=== PATIENT | male | born 1955 | race Caucasian/White ===

== ENCOUNTER 2020-01-26 15:17 | Inpatient (IN) | payer OTHER, SELFPAY ==
[~2020-01-26] VITALS: Ht 180.3 cm; Wt 95.7 kg
[2020-01-26] MEDS ORDERED: ALBUTEROL SULFATE 0.083% 2.5 MG/3 ML VIAL.NEB INH ONE (15:30)
[2020-01-26] MEDS ORDERED: methylPREDNISolone SOD SUCC/PF 62.5 MG/ML VIAL IVP ONE (15:30)
[2020-01-26] MEDS ORDERED: LEVOFLOXACIN 500 MG/D5W 100 ML IV ONE (15:30)
--- NOTE | 2020-01-26 15:30 | NUR ---
BIB HIS DAUGHTER FROM HOME FOR COVID -19 AND INCREASE WORK OF BREATHING. INTERMITTENT FEVERS. GENERAL WEAKNESS. RECENT EXPOSURE FROM [place]. CALM, ALERT, TACHYPNEIC, TACHYCARDIC, DIAPHORETIC. NO DISTRESS, TALKS IN FULL COMPLETE SENTENCES, DENIES CP/SOB
[2020-01-26 15:34] VITALS: BP_SYST 164
--- NOTE | 2020-01-26 15:50 | NUR ---
DR SANTIAGO IN TO ASSESS
--- NOTE | 2020-01-26 15:55 | NUR ---
IV HL 18 GUAGE LT AC, LABS SENT. RAPID COVID OBTAINED.
--- NOTE | 2020-01-26 16:08 | NUR ---
RT AT BEDSIDE TO ASSESS, CXR IN PROGRESS.
[2020-01-26] MEDS ORDERED: ALBUTEROL MDI INHALATION 8 GM INH INH ONE (16:15)
[2020-01-26 16:22] LABS: BASOPHILS % (AUTO) 0.3 % (0.0-2.0); HEMATOCRIT 41.8 % (36-54); LYMPHOCYTES # (AUTO) 1.1 K/uL (1.0-5.5); LYMPHOCYTES % (AUTO) 24.8 % (20.5-51.5); MEAN CORPUSCULAR HEMOGLOBIN 30 pg (27-31); MEAN CORPUSCULAR HGB CONC 33 % (32-36); MEAN CORPUSCULAR VOLUME 88 fL (79.0-98.0); MONOCYTES # (AUTO) 0.3 K/uL (0.0-1.0); MONOCYTES % (AUTO) 7.3 % (1.7-9.3); NEUTROPHILS # (AUTO) 2.9 K/uL (1.8-7.7); NEUTROPHILS % (AUTO) 67.6 % (40.0-70.0); PLATELET COUNT (AUTO) 185 K/uL (130-430); RED BLOOD CELL COUNT(AUTO) 4.74 MIL/uL (4.2-6.2); RED CELL DISTRIBUTION WIDTH 13.2 % (9.0-15.0); WHITE BLOOD COUNT (AUTO) 4.3 K/uL (4.8-10.8)
[2020-01-26 17:02] LABS: BILIRUBIN,URINE 1+ (NEGATIVE); BLOOD, URINE NEGATIVE (NEGATIVE); COLOR,URINE YELLOW (YELLOW); GLUCOSE,URINE NEGATIVE (NEGATIVE); KETONES,URINE 2+ (NEGATIVE); LEUKOCYTE ESTERASE ,URINE NEGATIVE (NEGATIVE); NITRITE, URINE NEGATIVE (NEGATIVE); PH,URINE 5.5 (5.0-8.0); PROTEIN URINE 2+ (NEGATIVE)
[2020-01-26 17:03] LABS: CALCIUM 8.6 mg/dL (8.4-11.0); CREATININE 1.01 mg/dL (0.55-1.30); POTASSIUM 3.3 mmol/L (3.5-5.1)
[2020-01-26 17:05] LABS: PROTHROMBIN TIME 10.4 SECS (9.5-12.5)
[2020-01-26 17:09] LABS: ALBUMIN 3.5 g/dL (3.4-4.8); TOTAL BILIRUBIN 0.9 mg/dL (0.0-1.0)
[2020-01-26 17:14] LABS: CLARITY/URINE HAZY (CLEAR)
[2020-01-26] MEDS ORDERED: ASPIRIN 81 MG TAB.CHEW PO ONE (17:30)
[2020-01-26] MEDS ORDERED: POTASSIUM CHLORIDE 20 MEQ/PKT PACKET PO ONE (17:30)
[2020-01-26 17:38] LABS: RBC,URINE NONE SEEN /HPF (0-3)
[2020-01-26 17:39] LABS: BACTERIA,URINE FEW /HPF (None Seen); WBC,URINE 0-3 /HPF (0-3)
[2020-01-26 17:40] LABS: COARSE GRANULAR CASTS,URINE 0-10 /LPF (None Seen); MUCUS,URINE 2+ /LPF (None Seen)
--- NOTE | 2020-01-26 17:45 | NUR ---
ADMIT ORDERS RECEIVED FOR PNA, RESP FAILURE UNDER USMAN
[2020-01-26] MEDS ORDERED: POTASSIUM CHLORIDE 20 MEQ/PKT PACKET ONE (17:46)
--- NOTE | 2020-01-26 18:10 | NUR ---
ALERT, CALM, RESP UNLABORED, SKIN WARM AND DRY. CLEAR MENTATION AND SPEECH, DENIES CP/SOB FULL COMPLETE SENTENCES
--- NOTE | 2020-01-26 18:37 | NUR ---
Medication reconciliation completed with information provided by MR. HERNÁNDEZ. Any prior medication reconciliation on file was reviewed and corrected.
--- NOTE | 2020-01-26 20:25 | NUR ---
Patient will be admitted to care of [facility]. Admitted to TELE unit. Will go to room 120. Belongings list completed. Complete and up to date summary report printed. SBAR report to be given at bedside with opportunity for questions.
--- NOTE | 2020-01-26 20:35 | NUR ---
ADMIT NOTE Received pt from ER to the floor with a diagnosis of Respiratory Failure and Covid 19 Pneumonia. Admission process initiated. patient oriented to pain management, safety and call light-teach back done.
--- NOTE | 2020-01-26 20:41 | NUR ---
ADMIT NOTE Received pt from ER to the floor with a diagnosis of RESP. FAILURE ,COVID-19,PNA. Admission process initiated. patient oriented to pain management, safety and call light-teach back done.
[2020-01-26 20:45] VITALS: BP_SYST 160; BP_SYST 165
--- NOTE | 2020-01-26 21:00 | NUR ---
RELATIONSHIP ASSOCIATE: Patient is alert and oriented x 4, ambulatory with steady gait. He states he contracted COVID19 while going to [place]. He c/o weakness and shortness of breath and declined any pain. Patient is on 2L O2 via NC with SPO2 of 96%. Patient states SOB gets worse with activity. I educated patient about the importance of lying in the prone position while in bed to help promote secretions and lung expansion, he verbalized understanding. Patient has IV on LAC 22 g patent and intact. Patient understands that he can use urinal at bedside throughout shift. I have provided patient with snacks, juice, and a sandwich. Patient's blood pressure is elevated and will contact Dr. Silveira to report. Patient states he does not take any medications at home and does not have any pre-existing medical conditions. I have ensured all safety precautions. Bed is in the lowest position, locked, and call light within reach.
--- NOTE | 2020-01-26 21:46 | NUR ---
Ottoniel Mcgowan Dr. s/w Kusum
--- NOTE | 2020-01-26 22:30 | NUR ---
DR. DUMONT WAS PAGED: Dr. Dumont returned call and I reported patient's blood pressure. He gave verbal orders for PRN Clonidine which were repeated. No further orders were given at this time.
[2020-01-27] VITALS (7 sets, daily range): BP systolic 151–177
--- NOTE | 2020-01-27 00:24 | NUR ---
Consultation Paged Reason for Consultation: Covid-19 Positive Was consult called: Y Person who was notified : Martina Consulting Physician: Dr. Mohan (Dr. Duron is spinal surgeon) Ordering Physician: Ottoniel Marin
--- NOTE | 2020-01-27 00:34 | NUR ---
Consultation Paged Reason for Consultation: Elevated Troponin, PNA, Covid-19 Was consult called: Y Person who was notified : Martina Consulting Physician: Dr. Tamayo (Dr. Garcia is police commissioner) Ordering Physician: Ottoniel Marin
[2020-01-27] MEDS: cloNIDine HCL 0.1 MG TABLET PO PRN ×3 (00:50→20:10)
--- NOTE | 2020-01-27 00:50 | NUR ---
RN ROUNDS / VITALS: Patient is laying in bed and is currently asleep. Vitals were taken and patient declined any pain. He is coughing upon waking. His blood pressure was elevated at 177/97. PRN Clonidine was given as ordered by MD. Patient educated about the the reason for administration and potential side effects. He verbalized understanding and does not have any questions or concerns at this time. Will continue to monitor patient.
--- NOTE | 2020-01-27 03:00 | NUR ---
RN ROUNDS: Patient is laying in bed and appears to be asleep. He is not exhibiting any s/s of distress or discomfort. Will continue to monitor patient.
--- NOTE | 2020-01-27 04:36 | NUR ---
RN ROUNDS / COVID PCR TEST: Patient is laying in bed and is asleep. I have performed vitals. BP is 154/98, pt is asymptomatic. Informed patient that I would be performing the COVID nasal test (PCR), he agreed to sample at this time. Pt tolerated well. Ensured all safety precautions. Bed is locked and in the lowest position, call light within reach.
--- NOTE | 2020-01-27 06:48 | NUR ---
CLOSING NOTE: Patient resting in the bed with no s/s of distress or discomfort. Patient has cough and is on 3 L O2 via NC with unlabored breathing. He has SL LAC 22g patent and intact. Ensured all safety precautions. Bed locked in low position, side rails up, call light within reach. All needs were met throughout shift. Isolation maintained. Will endorse to night nurse.
[2020-01-27] MEDS: ENOXAPARIN SODIUM 40 MG/0.4 ML SYRINGE SUBCUT SCH ×2 (07:15→09:00)
[2020-01-27] MEDS ORDERED: IPRATROPIUM BROM 0.5 MG/2.5 ML VIAL.NEB (ATROVENT) INH PRN (07:15)
[2020-01-27] MEDS: DEXAMETHASONE SOD PHOSPHATE 10 MG/ML VIAL IVP SCH (07:15)
[2020-01-27] MEDS ORDERED: ALBUTEROL SULFATE 0.083% 2.5 MG/3 ML VIAL.NEB INH PRN (07:15)
--- NOTE | 2020-01-27 07:25 | NUR ---
CONSULTATION PAGED/CALLED Reason for Consultation: covid positive Person Who was Notified: pager [phone] Consulting Physician: Dr. HARPER Product Technician Specialty: Booster Assembler Ordering Physician: Dr. Noriega
--- NOTE | 2020-01-27 08:00 | NUR ---
OPENING NOTES, RECEIVED PT IN BED, PT IS AAOX4, NO C/O OF PAIN, NO SOB, NO FEVER. NOTED THAT PT HAS COUGH, DENIES AND SPUTUMS OR PHLEGM, SAFETY PRECAUTION IN PLACE, CALL LIGHT IN REACH. BED IN LOW POSITION, EDUCATED PT ON THE USE OF CALL LIGHT , TV AND BED CONTROLS. ENCOURAGED PT TO CALL FOR ASSIST AND PAIN MEDS OR ANY CONCERNS. WILL CONT TO MONITOR.
[2020-01-27] MEDS: cefTRIAXone 1 GM in D5W 50 ML IV SCH (08:15)
[2020-01-27] MEDS: AZITHROMYCIN 500 MG in NS 250 ML IV SCH (09:00)
[2020-01-27 10:50] LABS: CALCIUM 9.3 mg/dL (8.4-11.0); CREATININE 0.96 mg/dL (0.55-1.30)
[2020-01-27] MEDS ORDERED: BENZONATATE 100 MG CAPSULE (TESSALON) PO ONE (11:00)
[2020-01-27] MEDS ORDERED: FAMOTIDINE 20 MG TABLET PO ONE (11:00)
[2020-01-27 11:03] LABS: ALBUMIN 3.4 g/dL (3.4-4.8); TOTAL BILIRUBIN 0.7 mg/dL (0.0-1.0)
[2020-01-27 11:11] LABS: C-REACTIVE PROTEIN QUANT 9.9 mg/dL (0-0.5)
[2020-01-27] MEDS ORDERED: ALBUTEROL MDI INHALATION 8 GM INH INH ONE (12:00)
[2020-01-27] MEDS ORDERED: ASPIRIN 81 MG TAB.CHEW PO ONE (12:00)
[2020-01-27] MEDS ORDERED: IPRATROPIUM BROM 0.5 MG/2.5 ML VIAL.NEB (ATROVENT) INH ONE (12:00)
[2020-01-27] MEDS ORDERED: IPRATROPIUM BROM 0.5 MG/2.5 ML VIAL.NEB (ATROVENT) INH SCH (13:00)
[2020-01-27] MEDS ORDERED: ALBUTEROL SULFATE 0.083% 2.5 MG/3 ML VIAL.NEB INH SCH (13:00)
--- NOTE | 2020-01-27 14:58 | NUR ---
ALL MEDICATIONS GIVEN TO PATIENT THIS SHIFT, TEACHING OF MEDICATIONS EFFECTS AND SIDE EFFECTS DONE. PT VERBALIZED UNDERSTANDING.
--- NOTE | 2020-01-27 14:59 | NUR ---
Dietitian Recommendations * Recommend regular diet w/ Ensure Enlive BID (ONS provides 700 kcal/day, 40 gm protein/day) KRISTIE, RD Please refer to Nutrition Assessment for details. Addendum: 01/27/20 at [address] Amended: Links added.
[2020-01-27] MEDS: BENZONATATE 100 MG CAPSULE (TESSALON) PO SCH ×2 (15:52→20:10)
--- NOTE | 2020-01-27 16:12 | NUR ---
SEEN PT DOING PRONING IN BED.
--- NOTE | 2020-01-27 18:19 | NUR ---
CLOSING NOTES, PT HAS BEEN STABLE THE WHOLE SHIFT, BP WAS A LITTLE ELEVATED THIS MORNING, PT WAS GIVEN CATAPRES, PT STARTED ON REMDESEVIR WITH NO ADVERSE RXN. PT CONTINUED TO BE ON O2 3L PER NC , O2 SAT STILL ON 93%.
[2020-01-27] MEDS: IPRATROPIUM BROM 0.5 MG/2.5 ML VIAL.NEB (ATROVENT) INH SCH (19:00)
--- NOTE | 2020-01-27 19:15 | NUR ---
OPENING NOTE REPORT RECEIVED FROM DAYSHIFT NURSE. PATIENT RECEIVED LYING IN BED, AWAKE, WATCHING TV, AOX4, NO S/S OF ACUTE DISTRESS NOTED. BREATHING EVEN AND UNLABORED. HOB RAISED, NASAL CANULA ATTACHED PROPERLY, ON 3L OF OXYGEN. PATIENT DENIES PAIN OR SOB. IV SITE IS PATENT, NO SIGNS OF INFILTRATION OR INFECTION NOTED. CALL LIGHT WITH PATIENT. PATIENT DEMONSTRATED BACK PROPER USE. BED IS LOCKED AND AT LOWEST POSITION. WILL CONTINUE TO MONITOR.
[2020-01-27] MEDS: ALBUTEROL MDI INHALATION 8 GM INH INH SCH (19:35)
[2020-01-27] MEDS: FAMOTIDINE 20 MG TABLET PO SCH (20:10)
--- NOTE | 2020-01-27 20:10 | NUR ---
VITALS/HIGH BP/MEDPASS VITALS TAKEN AT THIS TIME. BP ELEVATED, PRN MEDICATION ADMINISTERED. SCHEDULED MEDICATIONS ADMINISTERED AT THIS TIME. WILL CONTINUE TO MONITOR AND REASSESS. ALL NEEDS MET. CALL LIGHT WITH PATIENT.
--- NOTE | 2020-01-27 22:00 | NUR ---
ROUNDS PATIENT IN BED, WATCHING TV. NO SIGNS OF DISCOMFORT NOTED. CHEST RISE AND FALL EVEN BILATERALLY. CALL LIGHT WITH PATIENT. WILL CONTINUE TO MONITOR.
[2020-01-28] VITALS: BP_SYST 120
--- NOTE | 2020-01-28 | NUR ---
ROUNDS/VITALS PATIENT IN BED, RESTING, PRONE POSITION. VITALS TAKEN AT THIS TIME, WNL. ALL NEEDS MET. CALL LIGHT WITH PATIENT. WILL CONTINUE TO MONITOR.
--- NOTE | 2020-01-28 03:00 | NUR ---
ROUNDS PATIENT SITTING UP IN BED, DRINKING WATER. NO SIGNS OF DISCOMFORT. ALL NEEDS MET. CALL LIGHT WITH PATIENT. WILL CONTINUE TO MONITOR.
--- NOTE | 2020-01-28 05:00 | NUR ---
ROUNDS PATIENT IN BED, ASLEEP AT THIS TIME. NO SIGNS OF DISCOMFORT NOTED. CHEST RISE AND FALL EVEN BILATERALLY. HOB RAISED. CALL LIGHT WITH PATIENT. WILL CONTINUE TO MONITOR.
[2020-01-28] MEDS: cefTRIAXone 1 GM in D5W 50 ML IV SCH (06:15)
[2020-01-28] MEDS: DEXAMETHASONE SOD PHOSPHATE 10 MG/ML VIAL IVP SCH (06:19)
--- NOTE | 2020-01-28 06:19 | NUR ---
CLOSING NOTE PATIENT IN BED, AWAKE, AOX4, NO S/S OF ACUTE DISTRESS NOTED. BREATHING EVEN AND UNLABORED, HOB RAISED, NASAL CANULA ATTACHED PROPERLY, ON 3L OF OXYGEN. PATIENT DENIES PAIN OR SOB. IV ANTIBIOTIC INFUSING WELL, IV SITE IS PATENT, NO SIGNS OF INFILTRATION OR INFECTION NOTED. ALL NEEDS MET THROUGHOUT SHIFT. FALL AND SAFETY PRECAUTIONS MAINTAINED THROUGHOUT SHIFT. WILL CONTINUE TO MONITOR UNTIL PATIENT CARE IS ENDORSED TO ONCOMING DAYSHIFT NURSE.
[2020-01-28] MEDS: IPRATROPIUM BROM 0.5 MG/2.5 ML VIAL.NEB (ATROVENT) INH SCH (07:00)
[2020-01-28] MEDS: AZITHROMYCIN 500 MG in NS 250 ML IV SCH (07:15)
[2020-01-28] MEDS: ALBUTEROL MDI INHALATION 8 GM INH INH SCH ×3 (07:18→19:50)
--- NOTE | 2020-01-28 07:40 | NUR ---
OPENING NOTES PT RESTING IN BED, CHEST RISE AND FALL NOTED. NONLABORED BREATHING NOTED, RECEIVING O2 AT 3LPM VIA NASAL CANNULA, TOLERATING WELL. IV LINE INTACT AND PATENT, NO SIGNS OF INFILTRATION NOTED. NO ACUTE DISTRESS NOTED. ALL NEEDS MET. CALL LIGHT IN REACH. FALL AND ASPIRATION PRECAUTIONS IN PLACE. CONTINUE TO MONITOR.
--- NOTE | 2020-01-28 07:45 | NUR ---
SPOKE TO DR. BROWN, RECEIVED ORDERS FOR CONVALESCENT PLASMA, VERIFIED, AND CARRIED OUT.
[2020-01-28 09:00] VITALS: BP_SYST 138
[2020-01-28] MEDS: ASPIRIN 81 MG TAB.CHEW PO SCH (09:04)
[2020-01-28] MEDS: FAMOTIDINE 20 MG TABLET PO SCH ×2 (09:04→20:50)
[2020-01-28] MEDS: BENZONATATE 100 MG CAPSULE (TESSALON) PO SCH ×3 (09:04→20:50)
[2020-01-28] MEDS: ENOXAPARIN SODIUM 40 MG/0.4 ML SYRINGE SUBCUT SCH (09:04)
--- NOTE | 2020-01-28 09:04 | NUR ---
ROUTINE MEDS ADMINISTERED ORDERED PER MD, EDUCATION GIVEN, TOLERATED WELL. CONTINUE TO MONITOR. Addendum: 01/28/20 at 1131 by Jessica Stout RN EDUCATION GIVEN ON CONVALESCENT PLASMA, PT STATED WILL SIGN CONSENT AFTER READING PAPERS AND VERBALIZED UNDERSTANDING. AWAITING CONSENT.
[2020-01-28 09:56] LABS: CALCIUM 8.8 mg/dL (8.4-11.0); CREATININE 0.81 mg/dL (0.55-1.30); POTASSIUM 4.4 mmol/L (3.5-5.1); TOTAL BILIRUBIN 0.6 mg/dL (0.0-1.0)
[2020-01-28 09:57] LABS: C-REACTIVE PROTEIN QUANT 5.7 mg/dL (0-0.5)
[2020-01-28 12:00] VITALS: BP_SYST 137
[2020-01-28] MEDS: CHOLECALCIFEROL (VITAMIN D3) 2,000 UNIT TABLET PO SCH (12:24)
[2020-01-28] MEDS: ASCORBIC ACID 500 MG TABLET PO SCH (12:24)
--- NOTE | 2020-01-28 12:25 | NUR ---
ROUTINE MEDS ADMINISTERED ORDERED PER MD, EDUCATION GIVEN, TOLERATED WELL. PT STATES THINKING ABOUT CONVALESCENT PLASMA AT THIS TIME, HAS NOT SIGNED CONSENT FORM YET. AWAITING FOR CONSENT. CONTINUE TO MONITOR.
--- NOTE | 2020-01-28 15:50 | NUR ---
ROUTINE MEDS ADMINISTERED ORDERED PER MD, EDUCATION GIVEN, TOLERATED WELL. RECEIVED CONSENT FROM PT, WILL INFORM BLOOD BANK.
[2020-01-28 16:00] VITALS: BP_SYST 138
--- NOTE | 2020-01-28 18:16 | NUR ---
PLACED DINNER TRAY ON TABLE. PT SITTING UP IN CHAIR. CONTINUE TO MONITOR.
--- NOTE | 2020-01-28 19:00 | NUR ---
CLOSING NOTES PT AWAKE AND ALERT, SITTING UP IN BED, WATCHING TV. NONLABORED BREATHING NOTED, RECEIVING O2 AT 3LPM VIA NASAL CANNULA, TOLERATING WELL. IV LINE INTACT AND PATENT, NO SIGNS OF INFILTRATION NOTED. NO ACUTE DISTRESS NOTED. ALL NEEDS MET. CALL LIGHT IN REACH. FALL AND ASPIRATION AND ISOLATION PRECAUTIONS IN PLACE. ENDORSED CARE TO ALLAN NICHOLS INCLUDING ADMINISTERING CONVALESCENT PLASMA.
--- NOTE | 2020-01-28 19:30 | NUR ---
Initial Note: Received report from zaid LEMUS. Patient is in bed, watching tv. No acute distress. Even, nonlabored breathing on 3L nasal cannula. IV site is patent, intact, and saline locked. Bed is locked at lowest position. Side rails up x2. Call light is with patient. Safety and fall precautions in place. Will continue with plan of care. Addendum: 01/29/20 at 0143 by Shasha Tavarez RN Correction: Covid, safety, and fall precautions in place.
[2020-01-28 20:00] VITALS: BP_SYST 156
--- NOTE | 2020-01-28 22:20 | NUR ---
CONVALESCENT PLASMA INITIATION: Consent signed per patient agreeing to administration of blood. Blood has been type and crossmatched. PLASMA [id number] sent from blood bank. Information on unit of PLASMA checked against patient wristband at bedside by two nurses. All information matches. Patient or responsible alliance party informed of potential complications associated with blood transfusion. Informed of possible transfusion reaction symptoms. Aware of need to notify nurse at once of itching, shortness of breath, flushing, feeling of impending doom, or other symptoms not previously present. Vital signs taken within 5 minutes prior to initiation of transfusion. RN will remain with patient for first 15 minutes of transfusion at which time vital signs will be re-assessed.
--- NOTE | 2020-01-28 23:05 | NUR ---
Spoke to daughter: Spoke to daughter, Rizwana Meade [phone]. Updated her on patient status. Addendum: 01/28/20 at 8844 by Shasha Tavarez RN Correction: Phone # is [phone]
[2020-01-29] VITALS: BP_SYST 150
--- NOTE | 2020-01-29 00:30 | NUR ---
Rounds: Patient in bed, resting. Convalescent plasma completed at this time. No acute distress. Breathing is even, nonlabored on 3L nasal cannula. Call light is with patient. Covid, safety and fall precautions in place. Will continue to monitor.
--- NOTE | 2020-01-29 02:45 | NUR ---
Rounds: Patient is sleeping in bed. No signs of acute distress. Respirations are even, nonlabored on 3L nasal cannula. Call light is with patient. Covid, safety, and fall precautions in place. Will continue to monitor patient.
[2020-01-29] MEDS: guaiFENesin/DEXTROMETHORPHAN 10 ML UDC PO PRN ×4 (04:38→21:30)
--- NOTE | 2020-01-29 04:38 | NUR ---
Cough: Patient complained of cough. Robitussin 10ml PO indicated. Educated patient on indications and side effects of medications. Patient verbalized understanding. Medication administered per MD order. Patient tolerated well. Will continue to monitor patient.
[2020-01-29] MEDS: DEXAMETHASONE SOD PHOSPHATE 10 MG/ML VIAL IVP SCH (06:30)
[2020-01-29] MEDS: cefTRIAXone 1 GM in D5W 50 ML IV SCH (06:30)
--- NOTE | 2020-01-29 06:56 | NUR ---
Closing note: Patient is sitting on a chair by bedside, watching tv. No acute distress. Even, nonlabored breathing on 4L nasal cannula. IV site is patent and intact. All needs met. Bed is locked at lowest position. Side rails up x2. Call light is with patient. Safety and fall precautions in place. Will endorse to zaid RN. Addendum: 01/29/20 at 0658 by Shasha Tavarez RN Covid precautions in place.
[2020-01-29 07:22] LABS: BASOPHILS % (AUTO) 0.1 % (0.0-2.0); HEMATOCRIT 40.7 % (36-54); HEMOGLOBIN 13.8 g/dL (14.0-18.0); LYMPHOCYTES # (AUTO) 0.7 K/uL (1.0-5.5); LYMPHOCYTES % (AUTO) 9.5 % (20.5-51.5); MEAN CORPUSCULAR HEMOGLOBIN 30 pg (27-31); MEAN CORPUSCULAR HGB CONC 34 % (32-36); MEAN CORPUSCULAR VOLUME 87 fL (79.0-98.0); MONOCYTES # (AUTO) 0.6 K/uL (0.0-1.0); MONOCYTES % (AUTO) 7.8 % (1.7-9.3); NEUTROPHILS # (AUTO) 6.1 K/uL (1.8-7.7); NEUTROPHILS % (AUTO) 82.6 % (40.0-70.0); PLATELET COUNT (AUTO) 298 K/uL (130-430); RED BLOOD CELL COUNT(AUTO) 4.67 MIL/uL (4.2-6.2); RED CELL DISTRIBUTION WIDTH 13.2 % (9.0-15.0); WHITE BLOOD COUNT (AUTO) 7.4 K/uL (4.8-10.8)
[2020-01-29 07:32] LABS: ALBUMIN 3.2 g/dL (3.4-4.8); CALCIUM 8.8 mg/dL (8.4-11.0); CREATININE 0.78 mg/dL (0.55-1.30); POTASSIUM 4.2 mmol/L (3.5-5.1); TOTAL BILIRUBIN 0.7 mg/dL (0.0-1.0)
--- NOTE | 2020-01-29 07:40 | NUR ---
Initial note: Patient is awake, alert and oriented, sitting up in chair. Patient is not showing any signs of distress on 2L NC, denies pain at this time. Patient remains in isolation precautions due to positive covid test. IV line #22g LAC is intact and running TKO. On regular diet and eating most of his meals. Patient s skin is intact and due to get remdesevir at noon today. Will continue to monitor patients progress. I got a full report from the production supervisor off shift nurse. Bed is low, locked, 2 side rails are up and call light is within reach.
[2020-01-29 08:00] VITALS: BP_SYST 162
[2020-01-29] MEDS: ALBUTEROL MDI INHALATION 8 GM INH INH SCH ×6 (08:21→20:18)
[2020-01-29] MEDS: AZITHROMYCIN 500 MG in NS 250 ML IV SCH (08:26)
[2020-01-29] MEDS: ASPIRIN 81 MG TAB.CHEW PO SCH (08:30)
[2020-01-29] MEDS: CHOLECALCIFEROL (VITAMIN D3) 2,000 UNIT TABLET PO SCH (08:30)
[2020-01-29] MEDS: ASCORBIC ACID 500 MG TABLET PO SCH (08:30)
[2020-01-29] MEDS: FAMOTIDINE 20 MG TABLET PO SCH ×2 (08:30→21:30)
[2020-01-29] MEDS: BENZONATATE 100 MG CAPSULE (TESSALON) PO SCH ×3 (08:30→21:30)
[2020-01-29] MEDS: ENOXAPARIN SODIUM 40 MG/0.4 ML SYRINGE SUBCUT SCH (09:17)
--- NOTE | 2020-01-29 10:15 | NUR ---
Patient is watching tv, not showing any signs of distress. Cough medication was given per patients request. All needs were met. Bed is low, locked, 2 side rails are up and call light is within reach.
[2020-01-29 12:00] VITALS: BP_SYST 160
--- NOTE | 2020-01-29 12:12 | NUR ---
Patient is sitting up in chair, not showing any signs of distress. Denies pain at this time. Meal tray was taken in, remdesevir IV fluids were hung. Will continue to monitor patients status. Bed is low, locked, 2 side rails are up and call light is within reach.
[2020-01-29] MEDS: cloNIDine HCL 0.1 MG TABLET PO PRN (12:57)
--- NOTE | 2020-01-29 14:00 | NUR ---
Patient is sitting up in chair, watching TV, not showing any signs of distress. Bed is low, locked, 2 side rails are up and call light is within reach.
[2020-01-29 16:00] VITALS: BP_SYST 140
--- NOTE | 2020-01-29 16:08 | NUR ---
Patient in bed, not showing any signs of distress. RT is giving patient a breathing treatment and assessing his breathing effort on NC. Bed is low, locked, 2 side rails are up and call light is within reach.
--- NOTE | 2020-01-29 18:53 | NUR ---
Closing note: Patient is awake, alert and oriented, sitting up in chair. Patient is not showing any signs of distress on 2L NC, denies pain at this time. Patient remains in isolation precautions due to positive covid test. IV line #22g LAC is intact and running TKO. On regular diet and eating most of his meals. Patienthad 2nd dose of remdesevir at noon today. Will continue to monitor patients progress. All needs were met. I will give a full report to the assistant shift supervisor nurse. Bed is low, locked, 2 side rails are up and call light is within reach.
--- NOTE | 2020-01-29 19:30 | NUR ---
Opening notes Received report. Patient is resting in bed, no signs of distress noted. Breathing even and unlabored. RT increased O2 to 4 L NC. Patient O2 sat 93%-94%. IV patent and intact, no signs of infiltration noted. Patient ate about 50% of dinner. Provided patient with ice water. No other needs. Call light with the patient. Safety precautions in place.
[2020-01-29 20:30] VITALS: BP_SYST 156
--- NOTE | 2020-01-29 21:30 | NUR ---
Medications scheduled and prn cough medications given. Educated the action and side effects of Pepcid. patient verbalized understanding and tolerated well. No other needs at this time. Patient continues to watch TV. Call light with the patient. Safety precautions in place.
--- NOTE | 2020-01-29 23:22 | NUR ---
RN rounds Patient is resting in bed, watching TV. No signs of distress noted. Breathing even and unlabored on 4 L NC. No needs at this time. Call light with the patient. Safety precautions in place.
[2020-01-30] VITALS (7 sets, daily range): BP systolic 148–154
--- NOTE | 2020-01-30 01:30 | NUR ---
Increased oxygen Patient O2 sat on 6 L NC 88%. Patient has no shortness of breath, only coughing. RT came and put patient on Oximizer 6 L. O2 sat 94%. Patient tolerating well. Charge nurse aware. Addendum: 01/30/20 at 0311 by Cesilia Ortiz RN PRN cough medication given. Educated the action and side effects of medication. Patient verbalized understanding and tolerated well.
[2020-01-30] MEDS: guaiFENesin/DEXTROMETHORPHAN 10 ML UDC PO PRN (01:32)
--- NOTE | 2020-01-30 04:30 | NUR ---
RN rounds Patient is resting in bed, watching TV. No signs of distress noted. Breathing even and unlabored on 6 L oximizer. No needs at this time. Call light with the patient. Safety precautions in place.
--- NOTE | 2020-01-30 06:30 | NUR ---
5 L Oximizer Patient tolerating well. O2 sat 97%.
[2020-01-30] MEDS: DEXAMETHASONE SOD PHOSPHATE 10 MG/ML VIAL IVP SCH (06:54)
[2020-01-30] MEDS: AZITHROMYCIN 500 MG in NS 250 ML IV SCH (06:54)
[2020-01-30] MEDS: cefTRIAXone 1 GM in D5W 50 ML IV SCH (07:15)
[2020-01-30 07:20] LABS: CALCIUM 9.4 mg/dL (8.4-11.0); CREATININE 0.86 mg/dL (0.55-1.30); POTASSIUM 4.9 mmol/L (3.5-5.1)
[2020-01-30 07:21] LABS: ALBUMIN 3.1 g/dL (3.4-4.8); BILIRUBIN,DIRECT 0.2 mg/dL (0.0-0.3); TOTAL BILIRUBIN 0.7 mg/dL (0.0-1.0)
--- NOTE | 2020-01-30 07:33 | NUR ---
Closing notes Patient is resting in bed, no signs of distress noted. Breathing even and unlabored on 5 L oximizer. No shortness of breath noted. IV patent and intact, infusing ABX. Spoke to Dr. Miranda and informed MD that patient has been changed from 4 L NC to 6 L oximizer. MD stated "Okay." All needs met throughout the shift. Call light with the patient. Safety precautions in place. Endorsed care to day shift RN.
--- NOTE | 2020-01-30 07:45 | NUR ---
Opening Notes/Breathing Treatment Patient is awake, alert and oriented x4. Patient is noted with a cough, dry. No phelgm noted. RT was called for a breathing treatment, tolerated well. Patient remains on continuous oxygen @ 5 LPM via cool mist oximizer, tolerated well. IV site on left AC, 18 gauge intact at this time. IV ATB is still infusing at this time. Pt is ambulatory, steady gait. Pt denies any NVD or abnormal bleeding at this time. IC at bedside, pt encouraged to use it during shift, aware and agreed. All needs met. Safety and fall precautions in place. Bed in lowest position, locked. Will continue to monitor.
[2020-01-30] MEDS: ALBUTEROL MDI INHALATION 8 GM INH INH SCH ×4 (08:03→20:17)
[2020-01-30] MEDS: ASPIRIN 81 MG TAB.CHEW PO SCH (09:17)
[2020-01-30] MEDS: ASCORBIC ACID 500 MG TABLET PO SCH (09:17)
[2020-01-30] MEDS: FAMOTIDINE 20 MG TABLET PO SCH ×2 (09:17→20:07)
[2020-01-30] MEDS: CHOLECALCIFEROL (VITAMIN D3) 2,000 UNIT TABLET PO SCH (09:17)
[2020-01-30] MEDS: BENZONATATE 100 MG CAPSULE (TESSALON) PO SCH ×3 (09:17→20:07)
[2020-01-30] MEDS: ENOXAPARIN SODIUM 40 MG/0.4 ML SYRINGE SUBCUT SCH (10:16)
--- NOTE | 2020-01-30 10:45 | NUR ---
Notes Patient is awake, alert and oriented x4. No resp distress at this time. Pt remains on 5 L via oximizer. Pts family is at the window. IV ATB infusing at this time. Denies any pain at this time. Will continue to monitor.
--- NOTE | 2020-01-30 12:45 | NUR ---
Notes Patient is sitting up in his chair, alert and oriented x4. Pt is still noted with a cough. Encouraged to drink water, aware and agreed. Remains on oximizer @ 5 LPM, tolerated well. Pt denies any pain at this time. IV ATB infusing at this time. All needs met at this time. Will continue to monitor.
--- NOTE | 2020-01-30 13:35 | NUR ---
Ballot Given to daughter Per patient request, nurse gave pts mail in ballot to daughter, Hannah in the front lobby. Ballot was placed in a zip lock, wiped down with Sani-cloth, placed in a patients belonging bag and given to daughter.
--- NOTE | 2020-01-30 14:49 | NUR ---
Notes Patient is sitting up in his chair, watching TV at this time. No resp distress at this time. Pt remains on oximizer @ 5 LPM, tolerating well. IV ATB still infusing at this time. No needs at this time. Will continue to monitor.
[2020-01-30] MEDS: IPRATROPIUM BROM 0.5 MG/2.5 ML VIAL.NEB (ATROVENT) INH SCH (15:00)
--- NOTE | 2020-01-30 16:25 | NUR ---
Notes Patient is sitting in his chair at this time and watching TV. No resp distress noted. Breathing is even and unlabored. Denies any pain. Will continue to monitor.
--- NOTE | 2020-01-30 18:29 | NUR ---
Closing Notes Patient is awake, alert and oriented x4, sitting up in bed. No resp distress. Breathing is even and unlabored, no signs of dyspnea on excretion. Pt remains on cool mist oximizer @ 5 LPM, tolerated well. Pt is still noted with a cough. Pt denies any pain at this time. IV site on left AC, 22 gauge intact, saline lock. Pt denies any NVD or abnormal bleeding. IC at bedside. Patient is eating dinner at this time. All needs met. Call light within reach. Safety and fall precautions in place. Bed in lowest position, alarm on, locked. Will continue to monitor.
--- NOTE | 2020-01-30 19:35 | NUR ---
ROUNDS PATIENT SITTING UP IN THE CHAIR, WATCHING TV, NOT IN DISTRESS, VITALS STABLE. DENIES ANY PAIN AND DISCOMFORT AT THIS TIME. ASSESSMENT DONE AND DOCUMENTED. SEE FLOWSHEET. NEEDS ATTENDED TO. SAFETY MEASURES IN PLACED. BED IN LOW AND LOCKED POSITION. CALL LIGHT PLACED WITHIN REACH.
--- NOTE | 2020-01-30 21:15 | NUR ---
MEDICATION DUE MEDICATIONS GIVEN ORDERED, TOLERATED WELL. WILL CONTINUE TO MONITOR.
[2020-01-31] VITALS: BP_SYST 147
--- NOTE | 2020-01-31 00:10 | NUR ---
PATIENT RESTING: Patient resting quietly. No acute distress noted. Vital signs within normal range.
--- NOTE | 2020-01-31 02:14 | NUR ---
ROUNDS PATIENT ASLEEP, NO SOB NOTED, RESPIRATIONS EVEN AND UNLABORED. WILL CONTINUE TO MONITOR.
--- NOTE | 2020-01-31 04:17 | NUR ---
ROUNDS PATIENT SLEEPING, RESPIRATIONS EVEN AND UNLABORED, NO SIGNS OF ANY PAIN AND DISCOMFORT NOTED. WILL CONTINUE TO MONITOR.
--- NOTE | 2020-01-31 06:43 | NUR ---
CLOSING NOTES PATIENT AWAKE, NO COMPLAINTS AT THIS TIME, DENIES PAIN AND DISCOMFORT. ALL NEEDS ATTENDED TO. SAFETY MEASURES MAINTAINED. CALL LIGHT PLACED WITHIN REACH.
[2020-01-31 06:58] LABS: BASOPHILS % (AUTO) 0.1 % (0.0-2.0); HEMATOCRIT 41.1 % (36-54); HEMOGLOBIN 13.9 g/dL (14.0-18.0); LYMPHOCYTES # (AUTO) 1.6 K/uL (1.0-5.5); LYMPHOCYTES % (AUTO) 18.2 % (20.5-51.5); MEAN CORPUSCULAR HEMOGLOBIN 30 pg (27-31); MEAN CORPUSCULAR HGB CONC 34 % (32-36); MEAN CORPUSCULAR VOLUME 87 fL (79.0-98.0); MONOCYTES # (AUTO) 0.8 K/uL (0.0-1.0); MONOCYTES % (AUTO) 9.6 % (1.7-9.3); NEUTROPHILS # (AUTO) 6.2 K/uL (1.8-7.7); NEUTROPHILS % (AUTO) 72.1 % (40.0-70.0); PLATELET COUNT (AUTO) 350 K/uL (130-430); RED BLOOD CELL COUNT(AUTO) 4.71 MIL/uL (4.2-6.2); WHITE BLOOD COUNT (AUTO) 8.6 K/uL (4.8-10.8)
[2020-01-31 07:31] LABS: BILIRUBIN,DIRECT 0.2 mg/dL (0.0-0.3); CALCIUM 8.9 mg/dL (8.4-11.0); CREATININE 0.7 mg/dL (0.55-1.30); POTASSIUM 4.9 mmol/L (3.5-5.1); TOTAL BILIRUBIN 0.7 mg/dL (0.0-1.0)
[2020-01-31] MEDS: cefTRIAXone 1 GM in D5W 50 ML IV SCH (07:45)
[2020-01-31] MEDS: ALBUTEROL MDI INHALATION 8 GM INH INH SCH ×4 (07:58→20:02)
[2020-01-31 08:15] VITALS: BP_SYST 154
[2020-01-31] MEDS: DEXAMETHASONE SOD PHOSPHATE 10 MG/ML VIAL IVP SCH (08:15)
[2020-01-31] MEDS: AZITHROMYCIN 500 MG in NS 250 ML IV SCH (08:15)
--- NOTE | 2020-01-31 08:30 | NUR ---
OPENING NOTES, RECEIVED PT IN BED, PT IS AAOX4 , DENIES PAIN, NO SOB, NO RESP DISTRESS. NO FEVER. SAFETY PRECAUTION IN PLACE. CALL LIGHT IN REACH, BED IN LOW POSITION. WILL CONT TO MONITOR.
[2020-01-31] MEDS: FAMOTIDINE 20 MG TABLET PO SCH ×2 (09:50→20:17)
[2020-01-31] MEDS: BENZONATATE 100 MG CAPSULE (TESSALON) PO SCH ×3 (09:50→20:17)
[2020-01-31] MEDS: ASPIRIN 81 MG TAB.CHEW PO SCH (09:50)
[2020-01-31] MEDS: ASCORBIC ACID 500 MG TABLET PO SCH (09:51)
[2020-01-31] MEDS: ENOXAPARIN SODIUM 40 MG/0.4 ML SYRINGE SUBCUT SCH (09:51)
[2020-01-31] MEDS: CHOLECALCIFEROL (VITAMIN D3) 2,000 UNIT TABLET PO SCH (09:51)
[2020-01-31] MEDS: IPRATROPIUM BROM 0.5 MG/2.5 ML VIAL.NEB (ATROVENT) INH SCH ×3 (11:00→19:00)
--- NOTE | 2020-01-31 13:56 | NUR ---
o2 sat is 95% on 2.5li of oxygen via oxymizer, informed jackson andrade, she said she mehdi downgrade pt to nc.
[2020-01-31 16:14] VITALS: BP_SYST 140
--- NOTE | 2020-01-31 18:34 | NUR ---
CLOSING NOTES PT HAS BEEN STABLE THE WHOLE SHIFT, NO C/O PAIN, NO PT NOW ON O2 3L PER NC WITH RESTING SATURATION OF 96%. PT DESAT PER RESOURCE NURSE LIZETTE WHEN PT AMBULATED FROM CHAIR TO THE WINDOW. BUT PT ABLE TO RECOVER FAST AFTER RESTING. WILL ENDORSE TO NIGHT NURSE.
[2020-01-31 20:00] VITALS: BP_SYST 148
--- NOTE | 2020-01-31 20:00 | NUR ---
INITIAL NOTES PATIENT IS STABLE AND SITTING ON THE CHAIR WATCHING TV. NO S/S OF RESPIRATORY DISTRESS NOTED. CALL LIGHT IN REACH. PATIENT SUCCESSFULLY DEMONSTRATES USAGE OF CALL LIGHT IN REACH. BED IS LOCKED, AND AT THE LOWEST POSITION. FALL, SAFETY, ASPIRATION, RESPIRATORY, AND COVID PRECAUTIONS WILL BE IN PLACE THROUGHOUT THE SHIFT. PLAN OF CARE IS DISCUSSED WITH PATIENT.
--- NOTE | 2020-01-31 22:00 | NUR ---
PATIENT IS STABLE AND SLEEPING IN BED. NO S/S OF RESPIRATORY DISTRESS NOTED. CALL LIGHT IN REACH.
[2020-01-31 23:36] VITALS: BP_SYST 158
--- NOTE | 2020-02-01 | NUR ---
PATIENT IS SLEEPING IN BED AND STABLE. NO S/S OF RESPIRATORY DISTRESS NOTED. CALL LIGHT IN REACH.
--- NOTE | 2020-02-01 02:00 | NUR ---
PATIENT IS STABLE AND SLEEPING IN BED. NO S/S OF RESPIRATORY DISTRESS NOTED. CALL LIGHT IN REACH.
--- NOTE | 2020-02-01 03:00 | NUR ---
PATIENT WAS RESTING AT THIS TIME. PATIENT WAS STABLE AND SHOWED NO S/S OF RESPIRATORY DISTRESS NOTED. CALL LIGHT IN REACH.
--- NOTE | 2020-02-01 04:52 | NUR ---
PATIENT IS STABLE AND SLEEPING IN BED. NO S/S OF RESPIRATORY DISTRESS NOTED. CALL LIGHT IN REACH.
[2020-02-01] MEDS: DEXAMETHASONE SOD PHOSPHATE 10 MG/ML VIAL IVP SCH (06:42)
[2020-02-01] MEDS: cefTRIAXone 1 GM in D5W 50 ML IV SCH (06:42)
--- NOTE | 2020-02-01 06:50 | NUR ---
CLOSING NOTES PATIENT IS STABLE AND SITTING IN CHAIR. NO S/S OF RESPIRATORY DISTRESS NOTED. CALL LIGHT IN REACH. BED IS LOCKED AND AT THE LOWEST POSITION. FALL, SAFETY, ASPIRATION, COVID, AND RESPIRATORY PRECAUTIONS HAS BEEN IN PLACE THROUGHOUT THE SHIFT. WILL CONTINUE TO MONITOR UNTIL SBAR REPORT IS ENDORSE TO AM NURSE.
[2020-02-01] MEDS: ALBUTEROL MDI INHALATION 8 GM INH INH SCH ×3 (07:44→15:57)
[2020-02-01 08:00] VITALS: BP_SYST 153
[2020-02-01] MEDS: BENZONATATE 100 MG CAPSULE (TESSALON) PO SCH ×3 (08:33→22:27)
[2020-02-01] MEDS: ASCORBIC ACID 500 MG TABLET PO SCH (08:33)
[2020-02-01] MEDS: FAMOTIDINE 20 MG TABLET PO SCH ×2 (08:33→22:27)
[2020-02-01] MEDS: ASPIRIN 81 MG TAB.CHEW PO SCH (08:33)
[2020-02-01] MEDS: CHOLECALCIFEROL (VITAMIN D3) 2,000 UNIT TABLET PO SCH (08:33)
[2020-02-01] MEDS: ENOXAPARIN SODIUM 40 MG/0.4 ML SYRINGE SUBCUT SCH (09:00)
--- NOTE | 2020-02-01 10:20 | NUR ---
PT NOW ON ROOM AIR. OXYGEN DISCONTINUED( PT WAS SATURATING 96% ON 2.5 LITER PER NC). WILL CONT TO MONITOR PT.
--- NOTE | 2020-02-01 11:51 | NUR ---
pt o2 sat on room air is 91-92% while sitting. encouraged pt to do breathing exercise and proning.
[2020-02-01 12:00] VITALS: BP_SYST 135
--- NOTE | 2020-02-01 16:23 | NUR ---
Nutrition F/U RD reviewed pt's current EMR record including diet Hx, physician notes, nursing notes, pertinent labs/meds/procedures, care trends, and care activity. Admission Dx: Respiratory failure, COVID-19, pneumonia PMH: none SARS-CoV-2 Ag (Rapid) Positive 01/25 SARS-CoV-2 (PCR) Positive 01/26 Current Diet Order/Nutrition Support: Subjective Info: RD visit deferred d/t isolation precautions and PPE conservation efforts. Per EMR, pt seems to have a good appetite, tolerating diet well, no documentation of N/V/C/D. Last BM x2 01/29 noted. Wt has been stable at 211# since 01/26. Current diet remains adequate/appropriate. Pertinent Medications decadron, VIT C, VIT D3, zinc sulfate Pertinent Labs BG 102 H, Troponin 0.0.90 H, CRP 2 H, ALB 3 L Skin Integrity Comment: Monty scale: 19; skin intact per RN report Current % PO 80% average x13 meals Estimated Energy Expenditure (kcals/day) 6291-0533 kcal/day (MSJ x 1.2-1.5 CBW for acute state) Estimated Protein Required (g/day) 125-192 gm/day (1.3-2 gm/kg CBW for acute state) Estimated Fluid Required (l/day) 2.1-2.7 L/day (1 ml/kcal/day for maintenance) Problem/Etiology/Signs/Symptoms Unintentional wt loss related to pathophysiological causes as evidenced by reported 10# wt loss within the past 1 month. *ongoing Expected Outcomes/Goals - Monitor appetite and PO intakes w/ goal of pt meeting at least 80% of estimated nutritional needs, labs trending WNL, normal GI function, and skin integrity/wt maintenance Dietitian Recommendations * Recommend continuing regular diet w/ Ensure Enlive BID (ONS provides 700 kcal/day, 40 gm protein/day) Follow Up Mod Risk: F/U in 3-5 days Addendum: 02/01/20 at [address] CORRECTION: Current Diet Order/Nutrition Support: Regular w/ Ensure Enlive BID x5 days
--- NOTE | 2020-02-01 16:27 | NUR ---
Dietitian Recommendations * Recommend continuing regular diet w/ Ensure Enlive BID (ONS provides 700 kcal/day, 40 gm protein/day) LP, RD Please refer to Nutrition F/U for details.
[2020-02-01 17:00] VITALS: BP_SYST 137
--- NOTE | 2020-02-01 18:53 | NUR ---
closing notes, pt has been off oxygen from 1020 this am, pt is tolerating okay, saturation is around 92%-93%. with some episodes of desaturation to 89-90%. pt denies any feeling of sob during those time. pt encouraged to do breathing exercise and proning. all meds offered and taken. will endorse to night nurse.
[2020-02-01 19:50] VITALS: BP_SYST 158
--- NOTE | 2020-02-01 19:50 | NUR ---
INITIAL NOTE AT INITIAL ASSESSMENT, PATIENT IS RESTING IN BED, STABLE, NO SIGNS OF RESPIRATORY DISTRESS. PATIENT VERBALIZES NO PAIN. PLAN OF CARE FOR THE EVENING IS COMMUNICATED WITH THE PATIENT. PATIENT DEMONSTRATES CORRECT USAGE OF CALL LIGHT AT THIS TIME. BED IS LOCKED, ALARMED, AND AT THE LOWEST LEVEL. FALL SAFETY EDUCATION PROVIDED. FALL, SAFETY, ASPIRATION, ISOLATION, AND RESPIRATORY PRECAUTIONS WILL BE TAKEN THROUGHOUT THE SHIFT.
--- NOTE | 2020-02-01 21:50 | NUR ---
MED PASS NOTE SCHEDULED MEDICATIONS GIVEN AT THIS TIME, PATIENT TOLERATED WELL. PRN MEDICATION FOR SBP>160 IS ALSO GIVEN AT THIS TIME FOR ELEVATED BLOOD PRESSURE. WILL REASSESS FOR EFFECTIVENESS. PATIENT IS NOT SHOWING ANY S/S OF HYPERTENSION. CALL LIGHT IS PLACED WITHIN REACH. BED IS LOCKED, ALARMED, AND AT THE LOWEST LEVEL.
--- NOTE | 2020-02-01 21:55 | NUR ---
BREATHING EXERCISE TEACHING PATIENT EDUCATED ON BREATHING TECHNIQUE, HE DEMONSTRATED BACK TEACHING SUCCESSFULLY. HE IS CURRENTLY ON ROOM AIR WITH OXYGEN SATURATION ABOUT 93%.
[2020-02-01] MEDS: cloNIDine HCL 0.1 MG TABLET PO PRN (22:05)
--- NOTE | 2020-02-01 23:40 | NUR ---
NOTE PATIENT IS RESTING IN BED, STABLE, NO SIGNS OF RESPIRATORY DISTRESS. CALL LIGHT IS WITHIN REACH. BED IS LOCKED, ALARMED, AND AT THE LOWEST LEVEL.
--- NOTE | 2020-02-01 23:45 | NUR ---
ENDORSEMENT OF CARE BEDSIDE REPORT GIVEN AT THIS TIME TO ALLAN BURGESS. PATIENT IS RESTING IN BED, STABLE, NO SIGNS OF RESPIRATORY DISTRESS. CALL LIGHT IS WITHIN REACH. BED IS LOCKED, ALARMED, AND AT THE LOWEST LEVEL. FALL, SAFETY, ASPIRATION, ISOLATION, AND RESPIRATORY PRECAUTIONS HAVE BEEN TAKEN THROUGHOUT THE SHIFT. WILL CONTINUE TO MONITOR UNTIL SHIFT REPORT IS GIVEN AT BEDSIDE TO AM NURSE.
--- NOTE | 2020-02-01 23:45 | NUR ---
RECEIVED REPORT FROM ALLAN SIFUENTES PT RESTING IN BED, ALERT & ORIENTED X4. BREATHING EVEN AND UNLABORED TO ROOM AIR. NO SIGNS OF RESPIRATORY DISTRESS NOTED. PT TOLERATING WELL. IV ON LEFT AC 22G INTACT, NO SIGNS OF INFILTRATION NOTED. CALL LIGHT WITHIN REACH. SIDE RAILS UP X3. BED LOCKED IN LOWEST POSITION. SAFETY, FALL, AND ISOLATION PRECAUTIONS ARE MAINTAINED. WILL CONTINUE TO MONITOR.
[2020-02-02] VITALS: BP_SYST 158
--- NOTE | 2020-02-02 01:58 | NUR ---
RN ROUNDS PT SLEEPING. CHEST RISE AND FALL SYMMETRICAL. BREATHING EVEN AND UNLABORED TO ROOM AIR. NO S/S OF ACUTE DISTRESS NOTED. BED LOCKED IN LOWEST POSITION. CALL LIGHT WITHIN REACH. SAFETY AND ISOLATION PRECAUTIONS ARE IN PLACE. WILL CONTINUE TO MONITOR.
--- NOTE | 2020-02-02 04:10 | NUR ---
ASSUMPTION OF CARE REPORT RECEIVED AT BEDSIDE FROM ALLAN BURGESS. PATIENT IS RESTING IN A CHAIR AT BEDSIDE, STABLE, NO SIGNS OF RESPIRATORY DISTRESS. CALL LIGHT IS WITHIN REACH. BED IS LOCKED, ALARMED, AND AT THE LOWEST LEVEL.
--- NOTE | 2020-02-02 04:10 | NUR ---
RN NOTES PT SITTING IN THE CHAIR. O2 SAT DOWN TO 85%. PT IS ON 2L NOW. BREATHING EVEN AND UNLABORED TO O2 VIA NC AT 2L. PT OPAL ANY PAIN AT THIS TIME. CALL LIGHT WITHIN REACH. SIDE RAILS UP X3. BED LOCKED IN LOWEST POSITION. SAFETY AND ISOLATION PRECAUTIONS ARE IN PLACE. WILL CONTINUE TO MONITOR.
--- NOTE | 2020-02-02 06:10 | NUR ---
CLOSING NOTE PATIENT SLEPT WELL THROUGHOUT THE SHIFT. AT THIS TIME, PATIENT IS RESTING IN A CHAIR AT BEDSIDE, STABLE, NO SIGNS OF RESPIRATORY DISTRESS. CALL LIGHT IS WITHIN REACH. BED IS LOCKED, ALARMED, AND AT THE LOWEST LEVEL. FALL, SAFETY, ASPIRATION, ISOLATION, AND RESPIRATORY PRECAUTIONS HAVE BEEN TAKEN THROUGHOUT THE SHIFT. WILL CONTINUE TO MONITOR UNTIL SHIFT REPORT IS GIVEN AT BEDSIDE TO AM NURSE.
[2020-02-02] MEDS: cefTRIAXone 1 GM in D5W 50 ML IV SCH (06:20)
[2020-02-02] MEDS: DEXAMETHASONE SOD PHOSPHATE 10 MG/ML VIAL IVP SCH (06:20)
[2020-02-02] MEDS: IPRATROPIUM BROM 0.5 MG/2.5 ML VIAL.NEB (ATROVENT) INH SCH ×2 (07:00→11:00)
[2020-02-02] MEDS: ALBUTEROL MDI INHALATION 8 GM INH INH SCH ×2 (07:05→11:01)
--- NOTE | 2020-02-02 08:00 | NUR ---
AM ROUNDS: PATIENT SITTING ON THE CHAIR. IV SALINE LOCK AT LEFT FOREARM INTACT. CALL LIGHT WITH IN REACH. BED LOCKED AT LOWEST POSITION. CONTACT ISOLATION FOR COVID 19 POSITIVE. CONDITION GUARDED.
[2020-02-02 08:15] VITALS: BP_SYST 159
[2020-02-02] MEDS: ASPIRIN 81 MG TAB.CHEW PO SCH (08:18)
[2020-02-02] MEDS: ASCORBIC ACID 500 MG TABLET PO SCH (08:19)
[2020-02-02] MEDS: FAMOTIDINE 20 MG TABLET PO SCH (08:19)
[2020-02-02] MEDS: BENZONATATE 100 MG CAPSULE (TESSALON) PO SCH (08:19)
[2020-02-02] MEDS: CHOLECALCIFEROL (VITAMIN D3) 2,000 UNIT TABLET PO SCH (08:20)
[2020-02-02] MEDS: ENOXAPARIN SODIUM 40 MG/0.4 ML SYRINGE SUBCUT SCH (08:21)
--- NOTE | 2020-02-02 11:20 | NUR ---
DC ORDER: DR SU CAME WITH ORDERS DC HOME.F/U WITH PCP VIA TELE VISIT IN 3-4 DAYS.WITH HOME PRESCRIPTIONS AT THE CHART.
--- NOTE | 2020-02-02 11:25 | NUR ---
ID: DR SU SPOKE WITH DR AMES REGARDING HOME MEDS TO BE CONTINUE.WRITTEN PRESCRIPTION DONE.
--- NOTE | 2020-02-02 11:25 | NUR ---
[facility] INFECTIOUS DISEASE CALLED PAGED LUZMA FREGOSO AT [phone] SPOKE WITH JUANA.
[2020-02-02] MEDS ORDERED: APIX2.5T PO (11:35)
[2020-02-02] MEDS ORDERED: ASCO500T20 PO (11:39)
[2020-02-02] MEDS ORDERED: VITD2000 PO (11:40)
[2020-02-02] MEDS ORDERED: ZINC220T4 PO (11:40)
[2020-02-02] MEDS ORDERED: DEC4 PO (11:41)
[2020-02-02 11:58] VITALS: BP_SYST 153
[2020-02-02 12:15] VITALS: BP_SYST 153
--- NOTE | 2020-02-02 12:25 | NUR ---
LUNCH : MEAL TRAY SERVED. PATIENT SITTING ON THE CHAIR. NO RESPIRATORY DISTRESS.
--- NOTE | 2020-02-02 14:22 | NUR ---
D/C Patient Patient given D/C instructions. Patient verbalized understanding. MD discussed with patient the results and treatment provided. Ambulatory with steady gait for discharge to home. Patient in stable condition, ID band removed. IV catheter removed, intact and dressing applied, no active bleeding. Rx of given. Patient educated on pain management, and Covid quarantine for 14 days. All belongings sent with patient.
--- NOTE | 2020-02-05 15:14 | NUR ---
Discharge Follow Up Call: [employer] phoned patient @ [phone]. Per patient he is "feeling better" and his oxygen levels are between 95-96% now. Patient stated he will call his PCP to make a follow-up visit, and patient was able to get his medication filled. Patient also stated he has been quarantining. [employer] spoke with requesting for a DME; informed spouse, she would have to go through PCP to request for a wheelchair. Patient's baseline is independent with ambulation. No further SS call needed.
== END 2020-02-02 14:22 | disposition home or self-care (01) | DRG 177 ==
LOC: SED 15:17 → STU 17:50 → SMU 01-31 11:56
PROVIDERS: ADMIT Internal Medicine Hospice and Palliative Medicine; ATTEND Internal Medicine Hospice and Palliative Medicine
PROC: XW13325 Transfusion of Convalescent Plasma (Nonautologous) into Peripheral Vein, Percutaneous Approach, New Technology Group 5 (ICD-10-PCS; 2020-01-29)
PROC: XW033E5 Introduction of Remdesivir Anti-infective into Peripheral Vein, Percutaneous Approach, New Technology Group 5 (ICD-10-PCS; principal; 2020-01-30)
DX: U07.1 COVID-19 (principal); J96.01 Acute respiratory failure with hypoxia; J12.89 Other viral pneumonia; E11.9 Type 2 diabetes mellitus without complications; E66.01 Morbid (severe) obesity due to excess calories; G47.33 Obstructive sleep apnea (adult) (pediatric); Z68.29 Body mass index [BMI] 29.0-29.9, adult; Z21 Asymptomatic human immunodeficiency virus [HIV] infection status
CPT/HCPCS: 36415; 36430; 36600; 71045; 80048; 80053; 80061; 80076; 81000-TC; 82728; 82803-TC; 83605; 83880; 84484; 85025; 85379; 85610-TC; 86140; 86886; 86900; 86901; 87040-TC; 93005; 94640; 94664; 94760; 96365; 96375; 99285; G0378; J0456; J0696; J1100; J1650; J1956; J2930; J7050; J7060; J7613; P9017; U0003